=== PATIENT | male | born 1975 | race Caucasian/White ===

== ENCOUNTER → 2022-01-06 08:43 | Outpatient (BNVA) | payer MEDICAID, SELFPAY | PROVIDERS: PCP Family Medicine; Visit Provider Nurse Practitioner Family | DX: Z13.89 Encounter for screening for other disorder (principal) ==

== ENCOUNTER → 2023-01-06 09:51 | Outpatient (BNVA) | payer OTHER, SELFPAY | PROVIDERS: PCP Family Medicine; Visit Provider Nurse Practitioner Family | DX: F50.89 Other specified eating disorder (principal); R56.9 Unspecified convulsions | CPT/HCPCS: 99212 ==

== ENCOUNTER 2024-01-09 10:50 | Outpatient (AMB) | payer OTHER, SELFPAY ==
--- NOTE | 2024-01-09 11:07 | A.OFFVIS_ITS ---
Vital Signs 01/09/24 11:10 Height 5 ft 2 in Weight 175 lb BMI 32.0 BP 114/78 Blood Pressure Location Rt brachial Position Sitting Pulse 75 Pulse Source Pulse Oximeter Pulse Oximetry (%) 98 Oxygen Delivery Method Room Air Intake Visit Reasons: 1 yr f/u appt-CONF Intake Note: Patient presents for 1 year follow up.patient has been seizure free for years now. Allergies clomipramine [From Anafranil] Allergy (Mild, Verified 01/09/24 11:10) Unknown Medication List - Last Reconciled 01/09/24 by MI Root acetaminophen 0 mg PO alum-mag hydroxide-simeth 200-200-20 mg/5 mL 10 mL PO QID PRN bisacodyl 10 mg [place] DAILY carbamazepine 200 mg PO carboxymethylcellulose sodium 1% (TheraTears) drps ophthalmic (eye) clotrimazole 1% appl topical docusate sodium 100 mg PO BID escitalopram oxalate 40 mg PO DAILY fluoride (sodium) 1.1% (SF 5000 Plus) appl PO guaifenesin 200 mg PO Q4H PRN lactulose mL PO loratadine (Claritin) 10 mg PO DAILY lorazepam 0.5 mg PO ONCE PRN magnesium hydroxide (Milk of Magnesia) 30 mL PO BEDTIME multivitamin (One Daily Multivitamin tablet) 1 tab PO DAILY wgsaukhr-obroafykjRw-xbonixxgP 3.5mg-400 unit- 5,000 unit/gram (Triple Antibiotic) topical DAILY PRN ljypqyjk-telankrnpJd-lzbdawvfL 3.5mg-400 unit- 5,000 unit/gram (Neosporin (bie-kzh-aktfn)) 1 appl topical BID PRN ofloxacin 0.3% 0 drps otic (ears) omeprazole 20 mg PO DAILY polyethylene glycol 3350 17 grams PO DAILY risperidone 1 mg PO BID sennosides (senna) 17.2 mg PO DAILY sodium chloride 500 mg (1/2 x 1,000 mg) PO TID 30 days triamcinolone acetonide 0.1% topical zinc oxide 13% (Desitin Rapid Relief) 1 appl topical BID-QID PRN zinc sulfate 220 mg PO DAILY HPI Comments Details: 48-yr-old male presents for f/u visit, accompanied by his [facility] staff. Pt denies any significant interval medical changes. jail states pt has not had any interval seizure activity. His last serum sodium level was 129 L. Compliant w/ Tegretol and sodium tabs. He is taking fluids, but not excessively. FOR[facility]LY [facility], [facility] Medical History COVID-19 virus infection HLD (hyperlipidemia) OCD (obsessive compulsive disorder) Pica Social History Household Members: Caregiver Alcohol intake: never Patient Tobacco Use Status: Never used Tobacco Review of Systems Const All systems reviewed & are unremarkable except as noted in HPI and below Physical Exam Vital Signs: Last Vital Signs Pulse 75 01/09/24 11:10 BP 114/78 01/09/24 11:10 Pulse Ox 98 01/09/24 11:10 Oxygen Delivery Method Room Air 01/09/24 11:10 BMI result Body Mass Index 32.0 Const General: cooperative and no acute distress Resp Effort & Inspection: normal respiratory effort and able to speak in complete sentences Neuro Other: Developmental delay- simple verbalizations. General: gait normal Motor exam (neuro): 5/5 motor strength present throughout Psych Appearance: grossly normal Attitude: cooperative Assessment & Plan Assessment & Plan (1) Seizure: Code(s): R56.9 - Unspecified convulsions Category: Medical (2) Hyponatremia: Code(s): E87.1 - Hypo-osmolality and hyponatremia Category: Medical Plan Continue Tegretol 600mg qam and 800mg qhs. Increase Sodium chloride [id number] tid to 1000mg qam and 500mg bid at 4pm and 8pm. Recheck CBC, CMP, and Tegretol in 2 months. f/u in 6 months or sooner prn. Orders: Orders Complete Blood Count Auto Diff Today E87.1 - Hypo-osmolality and hyponatremia, R56.9 - Unspecified convulsions Carbamazepine Tegretol Today E87.1 - Hypo-osmolality and hyponatremia, G40.909 - Epilepsy, unspecified, not intractable, without status epilepticus, R56.9 - Unspecified convulsions Comprehensive Met. Panel Today E87.1 - Hypo-osmolality and hyponatremia, R56.9 - Unspecified convulsions Medications: Changed From sodium chloride 500 mg (1/2 x 1,000 mg) PO TID 30 days 45 tabs 6RF E87.1 - Hypo-osmolality and hyponatremia, R56.9 - Unspecified convulsions To sodium chloride 1 tab in am, 1/2 tab bid at 4pm and 8pm) orally 3 times a day; 30 days 60 tabs 6RF E87.1 - Hypo-osmolality and hyponatremia, R56.9 - Unspecified convulsions Coding Level of Care Code Est Pt Level 4 (65572) Diagnoses Seizure R56.9 Hyponatremia E87.1
[2024-01-09 11:10] VITALS: BP 114/78; PULSE 75; O2SAT 98; BMI 32.0
== END 2024-01-09 11:56 | disposition home or self-care (01) ==
PROVIDERS: PCP Family Medicine; Visit Provider Nurse Practitioner Family
DX: R56.9 Unspecified convulsions (principal); E87.1 Hypo-osmolality and hyponatremia
CPT/HCPCS: 99214

== ENCOUNTER → 2024-01-09 10:50 | Outpatient (BNVA) | payer OTHER, SELFPAY | PROVIDERS: PCP Family Medicine; Visit Provider Nurse Practitioner Family ==

== ENCOUNTER 2024-07-27 10:39 | Outpatient (AMB) | payer OTHER, SELFPAY ==
--- NOTE | 2024-07-27 10:39 | MHC.OFFVIS ---
Vital Signs 07/27/24 10:41 Height 5 ft 2 in Intake Visit Reasons: 6 month f/u Allergies clomipramine [From Anafranil] Allergy (Mild, Verified 01/09/24 11:10) Unknown Medication List - Last Reconciled 07/27/24 by MI Root acetaminophen 0 mg PO alum-mag hydroxide-simeth 200-200-20 mg/5 mL 10 mL PO QID PRN bisacodyl 10 mg [place] DAILY carbamazepine 200 mg PO carboxymethylcellulose sodium 1% (TheraTears) drps ophthalmic (eye) clotrimazole 1% appl topical docusate sodium 100 mg PO BID escitalopram oxalate 40 mg PO DAILY fluoride (sodium) 1.1% (SF 5000 Plus) appl PO guaifenesin 200 mg PO Q4H PRN lactulose mL PO loratadine (Claritin) 10 mg PO DAILY lorazepam 0.5 mg PO ONCE PRN magnesium hydroxide (Milk of Magnesia) 30 mL PO BEDTIME multivitamin (One Daily Multivitamin tablet) 1 tab PO DAILY bynfbrzj-pqzbftwddKj-rddpcdcjB 3.5mg-400 unit- 5,000 unit/gram (Triple Antibiotic) topical DAILY PRN cstfiipl-bemfgqztnGc-jdkheqswW 3.5mg-400 unit- 5,000 unit/gram (Neosporin (gvw-eqd-gyipp)) 1 appl topical BID PRN ofloxacin 0.3% 0 drps otic (ears) omeprazole 20 mg PO DAILY polyethylene glycol 3350 17 grams PO DAILY risperidone 1 mg PO BID sennosides (senna) 17.2 mg PO DAILY sodium chloride 1 tab in am, 1/2 tab bid at 4pm and 8pm orally. 30 days triamcinolone acetonide 0.1% topical zinc oxide 13% (Desitin Rapid Relief) 1 appl topical BID-QID PRN zinc sulfate 220 mg PO DAILY HPI Comments Details: [age] male presents for f/u telephone visit for seizure disorder, accompanied by his senior care staff. Visit conducted via telephone, as senior care staff unable to utilize [employer] technology today. In March, senior care staff reach out to the office, with report that patient's Risperdal dose was increased from 1 mg b.i.d. to 2 mg b.i.d.. A follow-up BMP level showed hyponatremia with sodium 122 low, despite patient being compliant with sodium chloride 1000 mg q.a.m. and 500 mg b.i.d.. Since, the risperidone was reduced back to 1 mg b.i.d.. Per staff, his serum sodium level last week was 132, just mildly low. And patient has been doing overall well. [facility] states pt has not had any interval seizure activity. Compliant w/ Tegretol and sodium tabs. He is taking fluids, but not excessively. FORMERLY [facility] Medical History COVID-19 virus infection OCD (obsessive compulsive disorder) Pica HLD (hyperlipidemia) Social History Household Members: Caregiver Alcohol intake: never Patient Tobacco Use Status: Never used Tobacco Physical Exam Const Other: Patient is nonverbal Telehealth Telehealth Telehealth Platform: [facility] Location of provider rendering services: practice address Location of patient: address on file Patient Identification confirmed using: Name, : Yes Telehealth method: voice only Patient verbally consented to treatment: Yes Patient verbally consented to billing insurance company: Yes Patient informed of any privacy concerns related to visit: Yes Minutes spent on Phone/Video with Pt.: 7 Assessment & Plan Assessment & Plan (1) Seizure: Code(s): R56.9 - Unspecified convulsions Category: Medical (2) Hyponatremia: Code(s): E87.1 - Hypo-osmolality and hyponatremia Category: Medical Plan Continue Tegretol 600mg qam and 800mg qhs. Continue sodium chloride 1,000 mg soluble tablet - 1 tab in am, 1/2 tab bid at 4pm and 8pm Recheck CBC, CMP, and Tegretol in 1 month. Will follow-up upon review of above and patient to follow-up in clinic in 6 months or sooner prn. Orders: Orders Comprehensive Met. Panel Today E87.1 - Hypo-osmolality and hyponatremia, R56.9 - Unspecified convulsions Carbamazepine Tegretol Today E87.1 - Hypo-osmolality and hyponatremia, G40.909 - Epilepsy, unspecified, not intractable, without status epilepticus, R56.9 - Unspecified convulsions Complete Blood Count Auto Diff Today E87.1 - Hypo-osmolality and hyponatremia, R56.9 - Unspecified convulsions Coding Level of Care Code Tele Est Pt Level 3 (44661) Diagnoses Seizure R56.9 Hyponatremia E87.1
== END 2024-07-27 14:15 | disposition home or self-care (01) ==
LOC: HO.HSMS 10:39
PROVIDERS: PCP Family Medicine; Visit Provider Nurse Practitioner Family
DX: R56.9 Unspecified convulsions (principal); E87.1 Hypo-osmolality and hyponatremia
CPT/HCPCS: 99213